=== PATIENT | female | born 1985 | race Hispanic/Latino ===

== ENCOUNTER 2018-04-16 13:50 | Outpatient (CLI) | payer BC | END 2018-04-16 13:51 | disposition home or self-care (01) | LOC: C.PAT 13:50 | DX: K42.0 Umbilical hernia with obstruction, without gangrene (principal) ==

== ENCOUNTER 2018-04-26 06:51 | Day surgery (SDC) | payer BC ==
[2018-04-16 14:01] VITALS: BMI 25.0
[2018-04-26] MEDS ORDERED: Lidocaine/Epinephrine 1% 1:100000 10 ML IJ ONE (07:14)
[2018-04-26] MEDS ORDERED: ceFAZolin 1 gm in NS 2 GM/200 ML BAG IVPB ONE (07:14)
[2018-04-26] MEDS ORDERED: Sodium Chloride 0.9% 40 ML IV ONE (07:14)
[2018-04-26] MEDS ORDERED: Bupivacaine HCl 0.25% PF (10 ml) Inj ONE (07:14)
[2018-04-26] MEDS ORDERED: Dexamethasone 4 mg/1 ml ONE ×2 (07:14→08:35)
[2018-04-26] MEDS ORDERED: Propofol 10 mg/ml 2,000 MG/200 ML VIAL ONE (07:30)
[2018-04-26] MEDS ORDERED: Propofol 10 mg/ml Inj (20 ML) ONE ×3 (07:43→11:15)
[2018-04-26] MEDS ORDERED: Midazolam 2 MG/2 ML VIAL ONE ×2 (07:43→10:17)
[2018-04-26] MEDS ORDERED: Bupivacaine Liposomal Inj 20 ml INFIL ONE ×2 (07:51→13:02)
[2018-04-26] MEDS ORDERED: Rocuronium 10 mg/ml (5 ml) ONE (08:29)
--- NOTE | 2018-04-26 12:00 | PCM.SURG1 ---
Surgeon's Initial Post Op Note - Surgeon's Notes Surgeon: Dr. Ro Perinatal Social Worker: Dr. Begum PGY3 Type of Anesthesia: General Endo Pre-Operative Diagnosis: umbilical hernia and diastasis Operative Findings: see dictation Post-Operative Diagnosis: umbilical hernia, ventral hernia, and diastasis Operation Performed: robotic umbilical and ventral hernia and diastasis repair w/ mesh Specimen/Specimens Removed: ventral hernia and umbilical hernia contents Estimated Blood Loss: EBL {In ML}: 20 Blood Products Given: N/A Drains Used: No Drains Post-Op Condition: Good Date of Surgery/Procedure: 04/26/18 Time of Surgery/Procedure: 11:59
[2018-04-26] MEDS ORDERED: HYDROmorphone 0.5 mg/0.5 ml ISec IVP PRN (12:05)
[2018-04-26 12:28] VITALS: O2SAT 100
[2018-04-26 14:51] VITALS: BP 127/80; PULSE 77; RESP 18; TEMP 98
--- NOTE | 2018-04-27 02:56 | OP ---
PROCEDURE DATE: 04/26/2018 PREOPERATIVE DIAGNOSES: 1. Umbilical hernia. 2. Diastasis of rectus muscle. 3. Abdominal pain. POSTOPERATIVE DIAGNOSES: 1. Supraumbilical large incarcerated ventral hernia. 2. Umbilical hernia 2 x 1 cm size. 3. Diastasis of recti 12 x 4 cm size. 4. Abdominal pain. PROCEDURE DONE: 1. Robotic umbilical hernia repair with a mesh. 2. Robotic incarcerated ventral hernia repair with a mesh. 3. Robotic diastasis of rectus muscle repair with a mesh. 4. Laparoscopic bilateral TAP block placement. SURGEON: Mariano Ro MD SPINNING BATH PATROLLER: Carmela Begum DO, PGY-3 resident. ANESTHESIA: General endotracheal tube anesthesia. ESTIMATED BLOOD LOSS: Around 10 mL. DRAINS: None. PATHOLOGY: The umbilical hernia sac and contents and ventral hernia sac and contents were sent for the pathology. COMPLICATIONS: None. INTRAOPERATIVE FINDINGS: The patient had a large supraumbilical ventral hernia with large amount of preperitoneal fat and the patient also had a 2 x 1 cm umbilical hernia and the patient had approximately 12 x 4 cm large diastasis of rectus muscle. DESCRIPTION OF PROCEDURE: On intraoperative steps, this is a 32-year-old female who was diagnosed with large umbilical hernia and the patient was also diagnosed with diastasis of rectus muscle. The patient was consented for robotic umbilical hernia repair with a mesh as well as diastasis of rectus muscle repair with a mesh. The patient was brought to the OR, placed supine on the operating table. After induction of the anesthesia, the abdomen was prepped and draped in the usual sterile fashion. A left upper quadrant incision was made using the VisiPort technique. Peritoneal cavity was entered. Pneumo was created and two 8-mm ports were placed in the left flank and left lower quadrant. The robot was brought in. Camera arm as well as arm 1 and arm 2 were docked, and peritoneum was dissected in the full length from the umbilical level up to the upper part of the abdomen. The patient was found to have very small umbilical hernia and the patient had extremely large approximately 5 x 4 cm incarcerated supraumbilical ventral hernia. The patient had 2 different hernias and the patient also had a diastasis of rectus muscle approximately 12 x 4 cm in size. The first umbilical hernial defect was closed with a #1 Prolene V-Loc suture in 2 layers. Then, supraumbilical large ventral hernial defect was closed with a #1 Prolene V-Loc suture in 2 layers and repair was continued superiorly up to the upper part of the abdomen to fix the diastasis of rectus muscle and the diastasis of rectus muscles was repaired by bringing the right and left side of the rectus muscles in the midline and it was sutured with a #1 Prolene V-Loc suture and during the second-layer closure down, the defect closure included previous umbilical as well as ventral hernial defect and after that the large 18 x 7 cm large mesh was introduced and mesh was implanted with a tacker, and after that the peritoneum was sutured back on the top of the repair and after that the specimen was taken out, and it was sent off the table for the pathology. The laparoscopic bilateral TAP block was given, 30:30 mL of Marcaine was injected in the transverse abdominis muscle plain area, and after proper TAP block, all the ports were taken out under vision. Pneumo was deflated. All the port sites were closed in 2 layers, the subcu with a 2-0 Vicryl, skin with a 4-0 Monocryl, and dry sterile dressing was applied. The patient tolerated the procedure well. Count of instrument and gauze was correct. There was no apparent complication. Mariano Ro MD
== END 2018-04-26 15:21 | disposition home or self-care (01) ==
LOC: C.SDS 06:51
PROVIDERS: ATTEND Surgery Surgical Critical Care
DX: K42.0 Umbilical hernia with obstruction, without gangrene (principal); K42.9 Umbilical hernia without obstruction or gangrene; K43.6 Other and unspecified ventral hernia with obstruction, without gangrene
CPT/HCPCS: 49653; 88302; J0690; J1100; J1885; J2250; J2704; J3010